=== PATIENT | male | born 1990 ===

== ENCOUNTER 2020-01-04 08:48 | Emergency (ER) | payer OTHER ==
[2020-01-04 09:02] VITALS: BP 145/77; PULSE 100; RESP 16; TEMP 97.5
[2020-01-04] MEDS ORDERED: ACETAMINOPHEN TAB 500 MG TAB PO STA (09:02)
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
== END 2020-01-04 10:03 | disposition home or self-care (01) ==
LOC: EC 08:48
DX: S06.0X9A Concussion with loss of consciousness of unspecified duration, initial encounter (principal); F17.200 Nicotine dependence, unspecified, uncomplicated; Y04.0XXA Assault by unarmed brawl or fight, initial encounter; Y92.512 Supermarket, store or market as the place of occurrence of the external cause
CPT/HCPCS: 70450; 72125; 99284